=== PATIENT | male | born 1955 | race Hispanic/Latino ===

== ENCOUNTER → 2023-09-12 | Outpatient (CLI) | payer OTHER, MEDICARE ==
[~2023-09-12] MED LIST: DICL20GE TP; HYDR-4064 PO; LIDO1ADH71 TP; MELO-108 PO
== END | disposition home or self-care (01) ==
LOC: RAH 11:12
PROVIDERS: ATTEND Internal Medicine
DX: R68.81 Early satiety (principal); R14.0 Abdominal distension (gaseous)
CPT/HCPCS: 78264; A9541